=== PATIENT | male | born 2000 | race Caucasian/White ===

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

== ENCOUNTER 2018-01-06 05:53 | Emergency (ER) | payer SELFPAY ==
[~2018-01-06] VITALS: Ht 172.7 cm; Wt 65.8 kg
[2018-01-06 06:31] LABS: BASO % 0.3 % (0.0-1.0); EOS % 0.3 % (1.0-4.0); HEMATOCRIT 43.8 % (42.0-52.0); HEMOGLOBIN 14.5 g/dl (14.0-18.0); LYMPH # 2.5 10*3/uL (1.3-4.4); LYMPH % 22.9 % (27.0-41.0); MEAN CELL VOLUME 82.8 fl (80.0-94.0); MEAN CORPUSCULAR HGB 27.4 pg (27.0-31.0); MEAN CORPUSCULAR HGB CONC 33.1 g/dl (33.0-37.0); MEAN PLATELET VOLUME 8.5 fl (9.6-12.3); MONO # 0.7 10*3/uL (0.1-1.0); MONO % 6.2 % (3.0-9.0); NEUT # 7.5 10*3/uL (2.3-7.9); PLATELET COUNT AUTOMATED 281 10*3/uL (130-400); RED BLOOD COUNT 5.29 10*6/uL (4.50-5.90); RED CELL DISTRI WIDTH 13.7 % (0-14.5); WHITE BLOOD COUNT 10.7 10*3/uL (4.8-10.8)
[2018-01-06 06:45] LABS: ALBUMIN 4.8 gm/dl (3.1-4.5); ALKALINE PHOSPHATASE 105 U/L (45-117); BUN 14 mg/dl (7-24); CHLORIDE 105 mmol/L (98-107); CREATININE 1.12 mg/dL (0.70-1.30); POTASSIUM 3.8 mmol/L (3.5-5.1); SGOT/AST 35 IU/L (3-35); SGPT/ALT 21 U/L (12-78); SODIUM 143 mmol/L (136-145); TOTAL PROTEIN 8.1 gm/dL (6.4-8.2)
== END 2018-01-06 08:31 | disposition home or self-care (01) ==
LOC: ED 05:53
PROVIDERS: Emergency Medicine Emergency Medical Services
DX: S01.511A Laceration without foreign body of lip, initial encounter (principal); S01.01XA Laceration without foreign body of scalp, initial encounter; S80.212A Abrasion, left knee, initial encounter; S60.416A Abrasion of right little finger, initial encounter; S60.414A Abrasion of right ring finger, initial encounter; Y04.0XXA Assault by unarmed brawl or fight, initial encounter; Y93.89 Activity, other specified; Y92.89 Other specified places as the place of occurrence of the external cause; Y99.8 Other external cause status

== ENCOUNTER 2018-02-26 12:38 | Emergency (ER) | payer MEDICAID ==
[~2018-02-26] VITALS: Ht 172.7 cm; Wt 63.5 kg
[2018-02-26] MEDS ORDERED: CEPHALEXIN500 M1 PO (14:23)
== END 2018-02-26 14:35 | disposition home or self-care (01) ==
LOC: ED 12:38
DX: S62.646A Nondisplaced fracture of proximal phalanx of right little finger, initial encounter for closed fracture (principal); S63.501A Unspecified sprain of right wrist, initial encounter; V89.2XXA Person injured in unspecified motor-vehicle accident, traffic, initial encounter; Y93.89 Activity, other specified; Y92.89 Other specified places as the place of occurrence of the external cause; Y99.8 Other external cause status

== ENCOUNTER 2018-07-08 14:54 | Emergency (ER) | payer SELFPAY ==
[~2018-07-08] VITALS: Wt 68.0 kg
[~2018-07-08 14:54] MED LIST changes: +CEPHALEXIN500 M1 PO
[2018-07-08] MEDS ORDERED: PREDNISONE20 M1 PO (16:31)
[2018-07-08] MEDS ORDERED: ZITHROMAX250 MG PO (16:31)
[2018-07-08] MEDS ORDERED: TESSALON PERLE100 M1 PO (16:31)
[2018-07-08] MEDS ORDERED: PROVENTIL HFA6.7 GM INH (16:31)
== END 2018-07-08 17:30 | disposition home or self-care (01) ==
LOC: ED 14:54
DX: J40 Bronchitis, not specified as acute or chronic (principal); F17.200 Nicotine dependence, unspecified, uncomplicated

== ENCOUNTER 2018-09-27 16:11 | Inpatient (IN) | payer SELFPAY ==
[~2018-09-27] VITALS: Ht 205.7 cm; Wt 58.2 kg
--- NOTE | ~2018-09-27 | EKG ---
[place], [place] ELECTROCARDIOGRAM REPORT NAME: KYLIE WILLS UNIT #: [id number] ROOM: [facility] DOCTOR: RAMO DRAFT REPORT BIRTHDATE: [birth year] [facility] Test Date: 2018-09-27 Test Time: 16:45:55 Pat Name: KYLIE WILLS Department: ICU Room: [facility] Gender: M Buncher Operator: TIFFANIE : 2000 Requested By: IRAJ GANN Order Number: [id number] Reading MD: Justine Chawla MD Measurements Intervals [place] Rate: 71 P: 63 VA: 144 QRS: 53 QRSD: 99 T: 63 QT: 398 QTc: 433 Interpretive Statements Sinus rhythm Compared to ECG 05/21/2018 18:46:59 Sinus arrhythmia no longer present Electronically Signed On 09-28-2018 10:49:46 PST by Justine Chawla MD CM:[id number]:ELECTROCARDIOGRAM REPORT [id number] IRAJ EISENBERG DRAFT REPORT IRAJ GANN DO
[~2018-09-27 16:11] MED LIST changes: +PREDNISONE20 M1 PO; +PROVENTIL HFA6.7 GM INH; +TESSALON PERLE100 M1 PO; +ZITHROMAX250 MG PO
[2018-09-27 16:14] VITALS: BP 127/63
--- NOTE | 2018-09-27 16:40 | NUR ---
UPON RETURNING TO FLOOR FROM 4TH FLOOR ADMISSION PATIENT NOTED TO BE RESTING WITH EYES CLOSED. PATIENT WOULD NOT AWAKEN TO VERBAL STIMULI. STERNAL RUBBED AND PATIENT AWOKE.
[2018-09-27 16:58] LABS: BASO % 0.1 % (0.0-1.0); EOS # 0.1 10*3/uL (0.0-0.4); EOS % 1.1 % (1.0-4.0); HEMATOCRIT 40.4 % (42.0-52.0); HEMOGLOBIN 13.2 g/dl (14.0-18.0); LYMPH # 2.4 10*3/uL (1.3-4.4); LYMPH % 34.1 % (27.0-41.0); MEAN CELL VOLUME 80.3 fl (80.0-94.0); MEAN CORPUSCULAR HGB 26.2 pg (27.0-31.0); MEAN CORPUSCULAR HGB CONC 32.7 g/dl (33.0-37.0); MEAN PLATELET VOLUME 8.5 fl (9.6-12.3); MONO # 0.6 10*3/uL (0.1-1.0); MONO % 7.7 % (3.0-9.0); NEUT # 4.1 10*3/uL (2.3-7.9); NEUT % 56.9 % (47.0-73.0); PLATELET COUNT AUTOMATED 230 10*3/uL (130-400); RED BLOOD COUNT 5.03 10*6/uL (4.50-5.90); RED CELL DISTRI WIDTH 13.7 % (0-14.5); WHITE BLOOD COUNT 7.1 10*3/uL (4.8-10.8)
[2018-09-27 17:16] LABS: ACETAMINOPHEN (TYLENOL) < 5.0 ug/ml (10-30); ALBUMIN 4.3 gm/dl (3.1-4.5); ALKALINE PHOSPHATASE 98 U/L (45-117); BUN 19 mg/dl (7-24); CHLORIDE 107 mmol/L (98-107); CREATININE 0.96 mg/dL (0.70-1.30); ETHYL ALCOHOL < 3.0 mg/dl (<3); LIPASE 67 U/L (73-393); POTASSIUM 3.3 mmol/L (3.5-5.1); SGOT/AST 19 IU/L (3-35); SGPT/ALT 20 U/L (12-78); SODIUM 144 mmol/L (136-145); TOTAL PROTEIN 7.5 gm/dL (6.4-8.2); TROPONIN I < 0.015 ng/ml (<0.045)
[2018-09-27 17:40] LABS: ACT PARTIAL THROMBO TIME 27.1 SECONDS (20.8-31.5); INTERNATIONAL NORM RATIO 1.2 (2.0-3.5)
[2018-09-27 18:02] VITALS: BP 106/64
--- NOTE | 2018-09-27 18:08 | NUR ---
[facility]IENT TRANSPORT TO [facility]. REPORT GIVEN TO JANNET MONACO AT THIS TIME WELL. PATIENT HAS BAG OF BELONGINGS, SHIRT, JACKET, AND HAT.
[2018-09-27 18:10] VITALS: BP 101/64
--- NOTE | 2018-09-27 18:10 | NUR ---
ON ARRIVAL TO ICU PT DOES AROUSE TO VERBAL STIMULI. REMAINS DISORIENTED TO WHAT HAPPENED TODAY BUT STATES HE TOOK 7-8 XANAX. WHEN PRESSED FURTHER WITH QUESTIONS REGARDING IF XANAX IS A MED PRESCRIBED TO HIM AND WHAT PHARMACY HE USES HE BECAME AGITATED AND STATED "WE ARENT GOING TO TALK ABOUT THOSE THINGS" ROLLED ON HIS SIDE AND REFUSED TO ANSWER ANY MORE QUESTIONS.
--- NOTE | 2018-09-27 18:10 | NUR ---
A 18, admitted to ICCU, under the services of MELISSA Weems DO with a diagnosis of OVERDOSE. Chief complaint is FOUND LETHARGIC ON BRIDGE STATED HE TOOK 7-8 XANAX. Patient arrived via stretcher from ER. Monitor applied. Initial assessment completed. Vital signs taken and recorded. MELISSA WEEMS DO notified of admission to the unit. Orders received. See assessment for past medical history, medications and allergies. Patient and/or family oriented to unit. [facility]U visitation policy reviewed. Clothing/patient valuable form completed but pt would not sign the paper. JANNET MC
[2018-09-27 20:00] VITALS: BP 100/55
--- NOTE | 2018-09-27 20:34 | NUR ---
2030 ABG'S DRAWN LEFT RADIAL SITE PER RT. PT IS ALERT AND AWAKE. IV FLUIDS CONT. K RUN RATE DECREASED DUE TO PT C/O "BURNING" AT SITE. URINAL AT BEDSIDE. NO DISTRESS NOTED. PULSE OX 98% ON RA.
--- NOTE | 2018-09-27 20:37 | NUR ---
ADDENDUM TO ABOVE NOTED. PT REFUSED ABG'S.
--- NOTE | 2018-09-27 21:35 | NUR ---
PT CRYING AND YELLING. C/O IV BURNING " UP MY WHOLE ARM". DR. CHANG CALLED. ORDERS RECEIVED. K RUN SHUT OFF. ICE APPLIED TO IV SITE RH. OFFERED TO RESTART PT IV. REFUSED AT PRESENT. WILL CONT TO MONITOR.
--- NOTE | 2018-09-27 22:15 | NUR ---
NO FURTHER C/O'S PAIN AT IV SITE. RESTING IN BED WITH EYES CLOSED.
[2018-09-28] VITALS: BP 100/58
--- NOTE | 2018-09-28 00:37 | NUR ---
RESTING IN BED WITH EYES CLOSED. APPEARS TO BE SLEEPING. IV FLUIDS CONT.
--- NOTE | 2018-09-28 02:53 | NUR ---
0245 PT IS AWAKE. STATES " WHAT TIME IS IT?". REQUESTING PHONE AND BELONGINGS. STATES "I'M LEAVING". DR. CHANG CALLED AND INFORMED. STATED HE WOULD "BE UP". 0250 PT GETTING DRESSED. 0255 PT TRYING TO TAKE IV OUT PER SELF. DC'ED PER THIS RN. AMA PAPER SIGNED. ELECTRICIAN SHIP INFORMED.
--- NOTE | 2018-09-28 02:58 | NUR ---
UPSET ABOUT MISSIING ITEMS - A HOODIE,TANK TOP, A LONG SLEEVE NIKE SHIRT AND ANOTHER PHONE. THESE ITEMS WERE NOT LISTED ON PT CLOTHING LIST. PT WAS BROUGHT IN BY [facility]. CAR REPAIRER NOTIFIED.
--- NOTE | 2018-09-28 03:15 | NUR ---
0 INVENTORY ASSOCIATE HERE WITH BAG OF CLOTHES. IT WAS PT BLACK HOODIE AND T SHIRT. USING PROFANE LANGUAGE AND UPSET ABOUT MISSING " BRAND NEW CELL PHONE" THAT HE "JUST BOUGHT YESTERDAY". PT DID HAVE A CELL PHONE IN HIS BELONGINGS. STATES "MY UNCLE GAVE ME THAT.". 314 PT WALKED DOWN [address], STOPPING TO YELL AT STAFF ON HIS WAY OUT, INVENTORY ASSOCIATE FOLLOWED HIM DOWN THE [address] AND TOLD HIN TO KEEP WALKING. SECURITY CALLED.
== END 2018-09-28 03:10 | disposition left against medical advice (07) | DRG 917 ==
LOC: ED 16:11 → EDHOLD 17:24 → ICCU 18:05
PROVIDERS: Emergency Medicine; ADMIT Internal Medicine
DX: T42.4X1A Poisoning by benzodiazepines, accidental (unintentional), initial encounter (principal); G93.41 Metabolic encephalopathy; D68.9 Coagulation defect, unspecified; Z68.1 Body mass index [BMI] 19.9 or less, adult; D64.9 Anemia, unspecified; R63.6 Underweight; E87.6 Hypokalemia; Z53.21 Procedure and treatment not carried out due to patient leaving prior to being seen by health care provider; E83.41 Hypermagnesemia; R79.82 Elevated C-reactive protein (CRP); Y92.89 Other specified places as the place of occurrence of the external cause; Z82.49 Family history of ischemic heart disease and other diseases of the circulatory system; Z80.9 Family history of malignant neoplasm, unspecified; Z79.52 Long term (current) use of systemic steroids; Z79.2 Long term (current) use of antibiotics

== ENCOUNTER 2019-07-30 00:41 | Emergency (ER) | payer OTHER ==
[~2019-07-30] VITALS: Wt 68.0 kg
[2019-07-30 01:20] LABS: BASO % 0.3 % (0.0-1.0); EOS # 0.1 10*3/uL (0.0-0.4); EOS % 1.1 % (1.0-4.0); HEMATOCRIT 37.4 % (42.0-52.0); HEMOGLOBIN 12.3 g/dl (14.0-18.0); LYMPH # 2.7 10*3/uL (1.3-4.4); LYMPH % 26.6 % (27.0-41.0); MEAN CELL VOLUME 83.5 fl (80.0-94.0); MEAN CORPUSCULAR HGB 27.5 pg (27.0-31.0); MEAN CORPUSCULAR HGB CONC 32.9 g/dl (33.0-37.0); MEAN PLATELET VOLUME 8.5 fl (9.6-12.3); MONO # 0.8 10*3/uL (0.1-1.0); MONO % 7.5 % (3.0-9.0); NEUT # 6.6 10*3/uL (2.3-7.9); PLATELET COUNT AUTOMATED 274 10*3/uL (130-400); RED BLOOD COUNT 4.48 10*6/uL (4.50-5.90); WHITE BLOOD COUNT 10.3 10*3/uL (4.8-10.8)
[2019-07-30 01:35] LABS: ALBUMIN 3.9 gm/dl (3.1-4.5); ALKALINE PHOSPHATASE 109 U/L (45-117); BUN 19 mg/dl (7-24); CHLORIDE 109 mmol/L (98-107); CREATININE 1.12 mg/dL (0.70-1.30); ETHYL ALCOHOL < 3.0 mg/dl (<3); LIPASE 96 U/L (73-393); POTASSIUM 2.9 mmol/L (3.5-5.1); SGOT/AST 23 IU/L (3-35); SGPT/ALT 17 U/L (12-78); SODIUM 140 mmol/L (136-145); TOTAL PROTEIN 7.2 gm/dL (6.4-8.2)
== END 2019-07-30 04:10 | disposition short-term general hospital (02) ==
LOC: ED 00:41
PROVIDERS: Emergency Medicine
DX: S02.2XXA Fracture of nasal bones, initial encounter for closed fracture (principal); S27.329A Contusion of lung, unspecified, initial encounter; J45.909 Unspecified asthma, uncomplicated; K21.9 Gastro-esophageal reflux disease without esophagitis; V89.2XXA Person injured in unspecified motor-vehicle accident, traffic, initial encounter; Y93.89 Activity, other specified; Y92.89 Other specified places as the place of occurrence of the external cause; Y99.8 Other external cause status

== ENCOUNTER 2019-12-31 19:29 | Emergency (ER) | payer SELFPAY ==
[~2019-12-31] VITALS: Ht 172.7 cm; Wt 63.5 kg
[2019-12-31] MEDS ORDERED: PERCOCET 5-3251 EACH PO (20:51)
[2019-12-31] MEDS ORDERED: AUGMENTIN 875875 MG PO (20:51)
== END 2019-12-31 21:21 | disposition home or self-care (01) ==
LOC: ED 19:29
DX: S61.412A Laceration without foreign body of left hand, initial encounter (principal); S01.511A Laceration without foreign body of lip, initial encounter; S51.831A Puncture wound without foreign body of right forearm, initial encounter; J45.909 Unspecified asthma, uncomplicated; K21.9 Gastro-esophageal reflux disease without esophagitis; F17.200 Nicotine dependence, unspecified, uncomplicated; Z79.2 Long term (current) use of antibiotics; Z79.899 Other long term (current) drug therapy; W54.0XXA Bitten by dog, initial encounter; Y93.89 Activity, other specified; Y92.098 Other place in other non-institutional residence as the place of occurrence of the external cause; Y99.8 Other external cause status

== ENCOUNTER 2021-07-03 16:26 | Emergency (ER) | payer SELFPAY ==
[~2021-07-03 16:26] MED LIST changes: +PERCOCET 5-3251 EACH PO
[2021-07-03] MEDS ORDERED: DECADRON6 M1 PO (17:02)
[2021-07-03] MEDS ORDERED: ZOFRAN4 MG PO (17:02)
== END 2021-07-03 17:22 | disposition home or self-care (01) ==
LOC: ED 16:26
DX: U07.1 COVID-19 (principal)

== ENCOUNTER 2021-08-04 21:01 | Emergency (ER) | payer SELFPAY ==
[~2021-08-04] VITALS: Ht 172.7 cm; Wt 65.8 kg
[~2021-08-04 21:01] MED LIST changes: +DECADRON6 M1 PO
== END 2021-08-04 23:23 | disposition home or self-care (01) ==
LOC: ED 21:01
DX: S80.01XA Contusion of right knee, initial encounter (principal); S40.211A Abrasion of right shoulder, initial encounter; S09.90XA Unspecified injury of head, initial encounter; F17.200 Nicotine dependence, unspecified, uncomplicated; V89.2XXA Person injured in unspecified motor-vehicle accident, traffic, initial encounter; Y93.89 Activity, other specified; Y92.89 Other specified places as the place of occurrence of the external cause; Y99.8 Other external cause status

== ENCOUNTER 2022-06-21 22:48 | Emergency (ER) | payer SELFPAY ==
[~2022-06-21] VITALS: Wt 68.0 kg
== END 2022-06-22 00:38 ==
LOC: ED 22:48
DX: T40.1X1A Poisoning by heroin, accidental (unintentional), initial encounter (principal); R11.0 Nausea; Y92.89 Other specified places as the place of occurrence of the external cause

== ENCOUNTER 2024-10-02 07:15 | Emergency (ER) | payer SELFPAY ==
[~2024-10-02] VITALS: Ht 175.2 cm; Wt 68.0 kg
[2024-10-02] MEDS ORDERED: IBUPROFEN 600 MG TAB PO ONE (07:45)
[2024-10-02] MEDS ORDERED: NAPROSYN500 MG PO (09:04)
== END 2024-10-02 09:16 | disposition home or self-care (01) ==
LOC: ED 07:15
DX: S93.402A Sprain of unspecified ligament of left ankle, initial encounter (principal); J45.909 Unspecified asthma, uncomplicated; K21.9 Gastro-esophageal reflux disease without esophagitis; F90.9 Attention-deficit hyperactivity disorder, unspecified type; F31.9 Bipolar disorder, unspecified; F10.10 Alcohol abuse, uncomplicated; W17.89XA Other fall from one level to another, initial encounter; Y93.39 Activity, other involving climbing, rappelling and jumping off; Y92.89 Other specified places as the place of occurrence of the external cause; Y99.8 Other external cause status